=== PATIENT | male | born 1950 | race Caucasian/White ===

== ENCOUNTER 2023-03-02 12:10 | Inpatient (IN) ==
[2023-03-02] MEDS ORDERED: Morphine 4 MG/ML VIAL (1 ml) IV ONE ×2 (13:18→15:14)
[2023-03-02] MEDS ORDERED: Orphenadrine Citrate INJ 30 mg/ml 2 ml VIAL (60 mg) IV ONE (15:14)
[2023-03-02] MEDS ORDERED: Tetan/Diph/Pertus SYR(Tdap) 0.5 ML SYR(BOOSTRIX) use SYR contains LATEX IM ONE (15:28)
[2023-03-02] MEDS ORDERED: Ondansetron 4 mg VIAL 2 MG/ML 2 ml VIAL IV PRN (15:34)
[2023-03-02] MEDS ORDERED: Al Hydrox/Mg Hydrox/Simet LIQ 30 ML UDC PO PRN (15:34)
[2023-03-02 15:44] LABS: ABS Monocytes 0.8 10^3/uL (0.0-1.1); Hematocrit 35.1 % (38-53); Hemoglobin 12.1 g/dL (13.2-16.3); Lymphocyte % 7.8 %; Mean Corpuscular Hemoglobin 31.2 pg (27-33); Mean Corpuscular Hgb Conc 34.4 g/dL (31-36); Mean Corpuscular Volume 90.8 fL (80-97); Mean Platelet Volume 7.7 fL (7.5-11.2); Platelet Count 214 10^3/uL (150-450); Red Blood Count 3.87 10^6/uL (4.06-5.63); Red Cell Distribution Width 13.7 % (12-17); White Blood Count 12.8 10^3/uL (3.6-10.2)
[2023-03-02 15:53] LABS: INR 1.36 (0.88-1.18)
[2023-03-02 16:00] LABS: Albumin 4.2 g/dL (3.2-5.2); Albumin/Globulin Ratio 1.7 (1-3); Calcium 9.1 mg/dL (8.6-10.3); Creatinine, Serum 0.76 mg/dL (0.67-1.17); Globulin 2.5 g/dL (2-4); Potassium 3.8 mmol/L (3.5-5.0); Total Bilirubin 0.4 mg/dL (0.2-1.0); Total Protein 6.7 g/dL (6.4-8.9); eGFR CKD-EPI 96.1 (>60)
[2023-03-03] MEDS: NS 0.9% 1000 ml BAG 1,000 ML IV SCH ×3 (00:15→12:49)
[2023-03-03] MEDS: diazePAM INJ CARPUJECT 5 MG/ML SYRINGE IV PRN (10:05)
[2023-03-03] MEDS ORDERED: HYDROmorphone 1 MG/1 ML SYRINGE IV SLOW PU ONE (12:41)
[2023-03-03] MEDS ORDERED: HYDROmorphone 1 MG/1 ML SYRINGE ONE (12:47)
[2023-03-03] MEDS ORDERED: ceFAZolin 2 GM in NS PREMIX 2 GM/100 ML BAG IVPB ONE (15:12)
[2023-03-03] MEDS ORDERED: Naloxone 0.4 mg VIAL 0.4 mg/ml 1 ml VIAL IV PRN (16:50)
[2023-03-03] MEDS ORDERED: oxyCODONE/Acetamin 5/325 mg TAB PO PRN (16:50)
[2023-03-03] MEDS ORDERED: HYDROcodone/ACETAMIN 5/325 mg TAB PO PRN (16:50)
[2023-03-03] MEDS ORDERED: Rocuronium 50 mg VIAL 10 mg/ml 5 ml VIAL (50 mg) ONE (16:53)
[2023-03-03] MEDS ORDERED: fentaNYL 250 mcg/5 ml 50 MCG/ML 5 ml VIAL (250 MCG) ONE (16:53)
[2023-03-03] MEDS ORDERED: Midazolam 2 mg/2 ml VIAL 1 mg/ml 2 ml VIAL (2 mg) ONE (16:54)
[2023-03-03] MEDS ORDERED: Ondansetron 4 mg VIAL 2 MG/ML 2 ml VIAL ONE (17:00)
[2023-03-03] MEDS ORDERED: Dexamethasone IV 4 MG/ML VIAL 1 ml VIAL ONE (17:00)
[2023-03-03] MEDS ORDERED: Propofol 10 MG/ML 20 ML BTL ONE (17:00)
[2023-03-03] MEDS ORDERED: Acetaminophen IV 1 GM/100ML 1,000 MG/100 ML BAG IV ONE (17:01)
[2023-03-03] MEDS ORDERED: Sevoflurane BOTTLE ONE (17:01)
[2023-03-03] MEDS ORDERED: Lidocaine 2% PF 5 ML VIAL ONE (17:01)
[2023-03-03] MEDS ORDERED: Lidocaine 1% w EPI 1:200,000 SDV 30 ML VIAL ONE (17:26)
[2023-03-03] MEDS ORDERED: Phenylephrine IV 10 MG/ML 1 ml VIAL ONE (18:22)
[2023-03-03] MEDS ORDERED: Phenylephrine 40 mcg/mL 10mL (400mcg) SYRINGE ONE (18:22)
[2023-03-03] MEDS ORDERED: oxyCODONE/Acetamin 5/325 mg TAB ONE (20:12)
[2023-03-03] MEDS ORDERED: fentaNYL 100 mcg/2 ml 50 MCG/ML VIAL ONE ×2 (20:12→20:48)
[2023-03-03] MEDS: fentaNYL 100 mcg/2 ml 50 MCG/ML VIAL IV PRN ×3 (20:26→20:49)
[2023-03-04] MEDS: ceFAZolin 1 GM X 3 DOSES POST-OP Q8H (AddVan) IVPB SCH ×3 (02:26→18:25)
[2023-03-04 06:34] LABS: Hematocrit 27.1 % (38-53); Hemoglobin 9.5 g/dL (13.2-16.3); Mean Platelet Volume 8.2 fL (7.5-11.2); Platelet Count 161 10^3/uL (150-450)
[2023-03-04 06:50] LABS: Calcium 7.9 mg/dL (8.6-10.3); Creatinine, Serum 0.86 mg/dL (0.67-1.17); Potassium 4.4 mmol/L (3.5-5.0); eGFR CKD-EPI 92.6 (>60)
[2023-03-05] MEDS: Senna TAB 8.6 mg TAB PO PRN (08:11)
[2023-03-06] MEDS: Senna TAB 8.6 mg TAB PO PRN (07:26)
[2023-03-06 08:51] LABS: Hematocrit 23.8 % (38-53); Hemoglobin 8.4 g/dL (13.2-16.3); Platelet Count 205 10^3/uL (150-450)
[2023-03-06 09:07] LABS: Calcium 8.5 mg/dL (8.6-10.3); Creatinine, Serum 0.73 mg/dL (0.67-1.17); Potassium 3.7 mmol/L (3.5-5.0); eGFR CKD-EPI 97.3 (>60)
[2023-03-07] MEDS: Senna TAB 8.6 mg TAB PO PRN (10:20)
[2023-03-07] MEDS: Magnesium Hydroxide LIQ 30 ML UDC PO PRN (10:28)
[2023-03-07] MEDS: Polyethylene Glycol 3350 17 GM PACKET PO SCH (20:08)
[2023-03-08 07:17] LABS: Hemoglobin 8.1 g/dL (13.2-16.3); Mean Corpuscular Hemoglobin 32.3 pg (27-33); Mean Corpuscular Hgb Conc 35.2 g/dL (31-36); Mean Corpuscular Volume 91.6 fL (80-97); Mean Platelet Volume 7.1 fL (7.5-11.2); Platelet Count 242 10^3/uL (150-450); Red Blood Count 2.51 10^6/uL (4.06-5.63); Red Cell Distribution Width 13.2 % (12-17); White Blood Count 5.2 10^3/uL (3.6-10.2)
[2023-03-08] MEDS: Polyethylene Glycol 3350 17 GM PACKET PO SCH ×2 (08:10→21:41)
[2023-03-08] MEDS ORDERED: Lactulose 30 ml UDC PO ONE (11:05)
[2023-03-08] MEDS: Magnesium Hydroxide LIQ 30 ML UDC PO PRN (21:44)
[2023-03-09 07:02] LABS: ABS Eosinophils 0.2 10^3/uL (0.0-0.5); ABS Lymphocytes 1.4 10^3/uL (1.0-4.8); ABS Monocytes 0.6 10^3/uL (0.0-1.1); ABS Neutrophils 3.2 10^3/uL (1.5-7.6); ABS Nucleated RBC 0.01 10^3/ul; Eosinophil % 2.8 %; Hemoglobin 8.8 g/dL (13.2-16.3); Lymphocyte % 25.6 %; Mean Corpuscular Hgb Conc 35.1 g/dL (31-36); Mean Platelet Volume 6.9 fL (7.5-11.2); Nucleated Red Blood Cells % 0.1 /100 WBC (0.0-0.4); Platelet Count 305 10^3/uL (150-450); Red Blood Count 2.75 10^6/uL (4.06-5.63); Red Cell Distribution Width 13.2 % (12-17); White Blood Count 5.4 10^3/uL (3.6-10.2)
[2023-03-09 07:19] LABS: Calcium 8.6 mg/dL (8.6-10.3); Creatinine, Serum 0.7 mg/dL (0.67-1.17); eGFR CKD-EPI 98.5 (>60)
[2023-03-09] MEDS: Magnesium Hydroxide LIQ 30 ML UDC PO PRN (08:47)
[2023-03-09] MEDS: Polyethylene Glycol 3350 17 GM PACKET PO SCH ×2 (08:47→21:25)
[2023-03-09] MEDS ORDERED: Lactulose 30 ml UDC PO ONE (09:44)
[2023-03-09] MEDS: diazePAM INJ CARPUJECT 5 MG/ML SYRINGE IV PRN (16:15)
[2023-03-10 07:13] VITALS: BP 114/65
[2023-03-10 08:11] LABS: ABS Eosinophils 0.1 10^3/uL (0.0-0.5); ABS Lymphocytes 1.3 10^3/uL (1.0-4.8); ABS Monocytes 0.8 10^3/uL (0.0-1.1); ABS Neutrophils 3.6 10^3/uL (1.5-7.6); Hematocrit 23.2 % (38-53); Hemoglobin 8.2 g/dL (13.2-16.3); Lymphocyte % 22.6 %; Mean Corpuscular Hemoglobin 32.2 pg (27-33); Mean Corpuscular Hgb Conc 35.3 g/dL (31-36); Mean Corpuscular Volume 91.2 fL (80-97); Nucleated Red Blood Cells % 0.1 /100 WBC (0.0-0.4); Platelet Count 321 10^3/uL (150-450); Red Blood Count 2.54 10^6/uL (4.06-5.63); Red Cell Distribution Width 13.5 % (12-17); White Blood Count 5.9 10^3/uL (3.6-10.2)
[2023-03-10] MEDS: Polyethylene Glycol 3350 17 GM PACKET PO SCH (08:40)
[2023-03-10] MEDS: Magnesium Hydroxide LIQ 30 ML UDC PO PRN (08:41)
== END 2023-03-10 12:50 | disposition home or self-care (01) | DRG 308 ==
LOC: ED 12:10 → EDHOLD 15:34 → SUATTDRO 15:34 → SSU 19:08
PROVIDERS: ADMIT Pediatrics; ATTEND Internal Medicine